=== PATIENT | male | born 1945 | race Caucasian/White ===

== ENCOUNTER 2021-04-05 06:36 | Day surgery (SDC) | payer OTHER ==
[2021-03-30 11:14] VITALS: BMI 33.9
[2021-04-05 06:58] VITALS: TEMP 97.9
[2021-04-05] MEDS ORDERED: LIDOCAINE HCL 2% (20ML MULTI-DOSE VIAL) ONE (07:10)
[2021-04-05] MEDS ORDERED: PROPOFOL 20 ML ONE (07:38)
[2021-04-05] MEDS ORDERED: MIDAZOLAM HCL 2 MG/2 ML SINGLE DOSE VIAL ONE (07:38)
[2021-04-05] MEDS ORDERED: DESFLURANE GAS 240 ML BOTTLE IH ONE (08:29)
[2021-04-05] MEDS ORDERED: SEVOFLURANE 250 ML BTL ONE (08:29)
[2021-04-05 08:55] VITALS: PULSE 60
[2021-04-05 09:09] VITALS: BP 142/61
== END 2021-04-05 09:16 | disposition home or self-care (01) ==
LOC: FASU 06:36
PROVIDERS: ATTEND Orthopaedic Surgery Hand Surgery
PROC: 0LN70ZZ Release Right Hand Tendon, Open Approach (ICD-10-PCS; principal; 2021-04-05 08:22)
DX: M65.331 Trigger finger, right middle finger (principal)